=== PATIENT | female | born 1980 | race African-American/Black ===

== ENCOUNTER 2020-03-19 22:21 | Emergency (ER) | payer SELFPAY ==
[~2020-03-19] VITALS: Ht 172.7 cm; Wt 93.9 kg
[2020-03-19] MEDS ORDERED: LORAZEPAM INJ 2 MG/ML VIAL IV ONE (22:30)
[2020-03-19] MEDS ORDERED: LORAZEPAM INJ 2 MG/ML VIAL ONE (22:35)
--- NOTE | 2020-03-19 22:57 | NUR ---
PT STATES "I FEEL BETTER NOW, I GUESS I AM READY TO GO HOME NOW" SAID WITH A SMILE.
--- NOTE | 2020-03-19 23:10 | Diagnostic Imaging Report ---
EXAMINATION: CXR 1 VEW - HOPD INDICATION: Short of breath COMPARISON: None FINDINGS: TUBES and LINES: None. LUNGS: Normal lung volumes. Lungs are clear. No consolidations. PLEURA: No pleural effusion or pneumothorax. HEART AND MEDIASTINUM: The cardiomediastinal silhouette is unremarkable. BONES AND SOFT TISSUES: No acute osseous lesion. Soft tissues are unremarkable. UPPER ABDOMEN: No free air under the diaphragm. IMPRESSION: No acute thoracic radiographic abnormality. Signed by: Eliseo Urbina DO on 03/19/2020 11:07 PM
--- NOTE | 2020-03-19 23:13 | Emergency Department Note ---
History of Present Illnes History of Present Illness Chief Complaint: General Medicine Complaints History of Present Illness This is a 39 year old female . 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 PT SPEAKING WITHOUT DIFF. BUT HYPERVENTILATING Historian: Patient Arrival Mode: Car Onset (how long ago): hour(s) (1) Location: generalized Quality: anxious Radiation: non-radiation, back, neck, extremity, abdomen, periumbilical, flank, proximal, distal, other Severity: moderate Onset quality: sudden Duration (how long): hour(s) (1) Timing of current episode: constant Progression: unchanged Chronicity: new Context: recent illness, recent surgery, recent immobilization, recent travel, trauma/injury, new medications, hx of DVT/PE, non-compliance w/ medications, other Relieving factors: none Exacerbating factors: none Associated symptoms: denies other symptoms, other Treatments prior to arrival: none Past Medical/Family History Physician Review I have reviewed the patient's past medical and family history. Any updates have been documented here. Past Medical History Recent Fever: No Clinical Suspicion of Infectio: No New/Unexplained Change in Ment: No Past Medical History: None Past Surgical History: None Social History Smoking Cessation: Never Smoker Alcohol Use: Occasional Any Illegal Drug Use: No TB Exposure/Symptoms: No Physically hurt or threatened: No Other Last Tetanus: UNK Any Pre-Existing Lines (PICC,: No Is patient up to date on immun: No Last Flu: UNK Last Pneumovax: NA Review of Systems Review of Systems Constitutional: no symptoms EENTM: no symptoms Cardiovascular: no symptoms Respiratory: no symptoms Gastrointestinal: no symptoms Genitourinary: no symptoms Musculoskeletal: no symptoms Neurological: no symptoms Psychological: as per HPI, anxiety Endocrine: no symptoms Hematological/Lymphatic: no symptoms Review of other systems All other systems reviewed and negative. Physical Exam Related Data Allergies: Coded Allergies: No Known Allergies (Unverified , 03/19/20) Triage Vital Signs Vital Signs Date Time Temp Pulse Resp B/P (MAP) Pulse Ox O2 Delivery O2 Flow Rate FiO2 03/19/20 22:21 98.2 115 22 161/88 100 Vital signs reviewed: Yes Physical Exam CONSTITUTIONAL Constitutional: well-developed, well-nourished HENT HENT: normocephalic, atraumatic, oropharynx clear/moist, nose normal HENT L/R: left ext ear normal, right ext ear normal EYES Eyes: PERRL, conjunctivae normal NECK Neck: ROM normal PULMONARY Pulmonary: effort normal, breath sounds normal CARDIOVASCULAR Cardiovascular: regular rhythm, heart sounds normal, capillary refill normal, normal rate GASTROINTESTINAL Abdominal: soft, nontender, bowel sounds normal GENITOURINARY Genitourinary: exam deferred SKIN Skin: warm, dry MUSCULOSKELETAL Musculoskeletal: ROM normal NEUROLOGICAL Neurological: alert, oriented x 3, no gross motor or sensory deficits PSYCHOLOGICAL Psychological: mood/affect normal, judgement normal, other (anxious) Results Imaging Imaging results reviewed: Yes Critical Care Time Subsequent provider I assumed direction of critical care for this patient from another provider of my specialty. Assessment & Plan Reassessment Reassessment time: 23:11 Reassessment better Assessment & Plan Final Impression: (1) Acute anxiety Assessment & Plan ativan Depart Disposition: HOME, SELF-CARE Last Vital Signs Date Time Temp Pulse Resp B/P (MAP) Pulse Ox O2 Delivery O2 Flow Rate FiO2 03/19/20 22:21 98.2 115 22 161/88 100 Medications in the ED Lorazepam 1 mg ONCE ONCE IV Last administered on 03/19/20at 22:35; Admin Dose 1 MG; Start 03/19/20 at 22:30; Stop 03/19/20 at 22:31; Status UNV KELLIE BERMEO MD March 19, 2020 23:13
[2020-03-19 23:27] VITALS: BP 133/63
== END 2020-03-19 23:27 | disposition home or self-care (01) ==
LOC: FSED 22:21
DX: F41.9 Anxiety disorder, unspecified (principal)
CPT/HCPCS: 71045; 96374; 99283; J2060

== ENCOUNTER 2021-03-21 22:14 | Emergency (ER) | payer SELFPAY ==
[~2021-03-21] VITALS: Ht 172.7 cm; Wt 88.0 kg
== END 2021-03-21 23:45 | disposition home or self-care (01) ==
LOC: FSED 22:35
DX: F41.9 Anxiety disorder, unspecified (principal); R06.00 Dyspnea, unspecified
CPT/HCPCS: 71045; 93005; 99283